=== PATIENT | male | born 1990 | race Caucasian/White ===

== ENCOUNTER 2017-10-21 12:36 | Emergency (ER) | payer OTHER ==
[~2017-10-21] VITALS: Ht 160 cm; Wt 65.9 kg
[2017-10-21 14:55] VITALS: BP 110/60
== END 2017-10-21 15:16 | disposition home or self-care (01) ==
LOC: EMS 12:37
DX: M79.672 Pain in left foot (principal); V49.59XA Passenger injured in collision with other motor vehicles in traffic accident, initial encounter; Y93.89 Activity, other specified; Y92.410 Unspecified street and highway as the place of occurrence of the external cause; Y99.8 Other external cause status
CPT/HCPCS: 99284